=== PATIENT | female | born 1955 | race Caucasian/White ===

== ENCOUNTER 2021-04-29 13:29 | Emergency (ER) | payer MEDICARE, MEDICAID ==
[~2021-04-29] VITALS: Ht 172.7 cm; Wt 129.5 kg
[2021-04-29 13:30] VITALS: TEMP 97.2
[2021-04-29 13:49] LABS: BASO # 0.1 K/mm3 (0.0-0.2); BASO % 0.9 % (0.0-2.0); EOS # 0.1 K/mm3 (0.0-0.7); GRAN # 7.6 K/mm3 (1.4-6.5); GRAN % 77.2 % (42.2-75.2); HEMATOCRIT 41.7 % (37.0-47.0); HEMOGLOBIN 13.6 g/dl (12.5-16.0); LYMPH # 1.2 K/mm3 (1.2-3.4); LYMPH % 12.2 % (20.0-51.0); MEAN CELL VOLUME 95 fl (80.0-100.0); MEAN CORPUSCULAR HEMOGLOBIN 31 pg (27-31); MEAN CORPUSCULAR HGB CONC 33 g/dl (33.0-37.0); MEAN PLATELET VOLUME 9.8 fl (7.4-10.4); MONO # 0.8 K/mm3 (0.1-0.6); MONO % 8.4 % (1.7-9.3); PLATELET COUNT 215 K/mm3 (130-400); REDCELL DISTRIBUTION WIDTH-CV 12.2 % (11.5-14.5)
[2021-04-29 13:51] LABS: INR 2.7 (0.8-3.0); PROTHROMBIN TIME 29.9 SECONDS (9.7-12.8)
[2021-04-29 14:00] LABS: ALBUMIN 3.9 gm/dL (3.4-4.8); CALCIUM 9.2 mg/dL (8.4-10.2); CREATININE, serum 0.81 mg/dL (0.57-1.11); POTASSIUM 3.7 mmol/L (3.5-4.5); TOTAL PROTEIN 7.7 gm/dL (6.2-8.1)
[2021-04-29 14:05] LABS: TROPONIN-I 0.019 ng/mL (0.00-0.033)
[2021-04-29 17:30] VITALS: BP 174/82; PULSE 69
== END 2021-04-29 17:56 | disposition short-term general hospital (02) ==
LOC: COL.ER 13:29
PROVIDERS: Emergency Medicine
DX: M79.602 Pain in left arm (principal); I48.91 Unspecified atrial fibrillation; Z20.822 Contact with and (suspected) exposure to COVID-19; Z79.01 Long term (current) use of anticoagulants
CPT/HCPCS: J1644; J2270